=== PATIENT | female | born 1970 ===

== ENCOUNTER 2023-02-07 17:33 | Observation (INO) | payer SELFPAY ==
[2023-02-07] MEDS ORDERED: MORPHINE 4 MG/ML SYR ONE (17:58)
[2023-02-07] MEDS ORDERED: ONDANSETRON 4 MG/2 ML VIAL ONE (17:59)
[2023-02-07 18:15] LABS: Absolute Lymphocytes (CBC) 2.9 K/uL (0.7-4.9); Hematocrit 41.7 % (36.0-45.0); Lymphocytes % 23.8 % (15.3-44.8); MPV 9.9 fL (7.6-11.3); Potassium 3.3 mEq/L (3.5-5.1); RBC Red Blood Cell Count 4.69 M/uL (3.86-4.86); Troponin High Sensitivity 8.1 pg/mL (<58.9)
--- NOTE | 2023-02-07 19:00 | ER ---
Nurse's Notes [facility] Name: Lula Salazar Age: 52 yrs Sex: Female : 1970 Arrival Date: 02/07/2023 Time: 17:33 Bed 3 Private MD: Diagnosis: Chest pain, unspecified Presentation: 02/07 17:33 Chief complaint: Chief complaint: Patient states: left sided chest pain radiating to aa5 left arm that began 45mins ago, pt reports she takes Eliquis. Reports taking 2 baby aspirin and 2 Nitroglycerine MASS SPEC. 17:33 Onset of symptoms was February 07, 2023. aa5 17:33 Acuity: JEOVANNY 2 aa5 17:33 Coronavirus screen: At this time, the client does not indicate any symptoms associated aa5 with coronavirus-19. Ebola Screen: Patient denies travel to an Ebola-affected area in the 21 days before illness onset. Initial Sepsis Screen: Does the patient meet any 2 criteria? No. Patient's initial sepsis screen is negative. Does the patient have a suspected source of infection? No. Patient's initial sepsis screen is negative. Risk Assessment: Do you want to hurt yourself or someone else? Patient reports no desire to harm self or others. 17:33 Method Of Arrival: Ambulatory aa5 [employer] SPECIALIST: 19:08 LMP N/A - Hysterectomy jl7 Historical: - Allergies: 17:38 No Known Allergies; aa5 - PMHx: 17:38 Hypertensive disorder; Hypercholesterolemia; DVT; PE; aa5 - PSHx: 17:38 hysterectomy; L knee; right ankle; R foot; R calf; aa5 - Immunization history:: Adult Immunizations unknown. - Social history:: Smoking status: Patient denies any tobacco usage or history of. - Family history:: not pertinent. - Hospitalizations: : No recent hospitalization is reported. Screenin:06 [facility] ED Fall Risk Assessment (Adult) History of falling in the last 3 months, jl7 including since admission No falls in past 3 months (0 pts) Confusion or Disorientation No (0 pts) Intoxicated or Sedated No (0 pts) Impaired Gait No (0 pts) Mobility Assist Device Used No (0 pt) Altered Elimination No (0 pt) Score/Fall Risk Level 0 - 2 = Low Risk Oriented to surroundings, Maintained a safe environment. Abuse screen: Denies threats or abuse. Denies injuries from another. Nutritional screening: No deficits noted. Tuberculosis screening: No symptoms or risk factors identified. Assessment: 17:40 General: Appears uncomfortable, Behavior is Pt appears anxious, but is joking with ED ss staff, but voices her anxiety. Pain: Complains of pain in chest Pain radiates to back Pain currently is 6 out of 10 on a pain scale. Pain began 1 hour ago. Is intermittent. Neuro: Level of Consciousness is awake, alert, obeys commands, Oriented to person, place, time, situation, Speech is normal, Facial symmetry appears normal, Pupils are PERRLA. Cardiovascular: Pulses are palpable in right radial artery, right posterior tibial artery, left radial artery and left posterior tibial artery. Respiratory: Airway is patent Respiratory effort is even, unlabored, Respiratory pattern is regular, symmetrical. GI: Patient currently denies diarrhea, nausea, vomiting. : No signs and/or symptoms were reported regarding the genitourinary system. EENT: Oral mucosa is moist. Derm: Skin is intact, is healthy with good turgor, Skin is pink, warm \T\ dry. normal. Musculoskeletal: Circulation, motion, and sensation intact. Range of motion: intact in all extremities, Swelling absent. 20:41 Reassessment: Patient appears in no apparent distress at this time. Patient is alert, kl oriented x 3, equal unlabored respirations, skin warm/dry/pink. Patient states symptoms have improved. Vital Signs: 17:33 BP 180 / 92; Pulse 66; Resp 18 S; Temp 98(TE); Pulse Ox 97% on R/A; Weight 92.53 kg aa5 (R); Height 5 ft. 3 in. (R); 18:00 BP 146 / 79; Pulse 67; Resp 14; Pulse Ox 99% ; jl7 18:45 BP 140 / 70; Pulse 65; Resp 15; Pulse Ox 96% ; jl7 19:43 BP 130 / 79; Pulse 72; Resp 18; Pulse Ox 99% ; kl 20:39 BP 136 / 81; Pulse 78; Resp 18; Temp 97(TE); Pulse Ox 99% on R/A; Pain 6/10; kl 17:33 Body Mass Index 36.14 (92.53 kg, 160.02 cm) aa5 20:39 Pain Scale: Adult ED Course: 17:33 Arm band placed on Patient placed in an exam room, on a stretcher. aa5 17:33 Patient has correct armband on for positive identification. Placed in gown. Bed in low jl7 position. Call light in reach. Side rails up X2. Client placed on continuous cardiac and pulse oximetry monitoring. NIBP monitoring applied. 17:33 Patient maintains SpO2 saturation greater than 95% on room air. jl7 17:34 Patient arrived in ED. ts1 17:34 Malik Dior MD is Attending Physician. rn 17:39 Triage completed. aa5 17:41 Inserted saline lock: 20 gauge in right antecubital area, using aseptic technique. jl7 Blood collected. 17:47 EKG done, by ED staff, reviewed by Malik Dior MD. zm 17:50 Ashlee Browning RN is Primary Nurse. ss 18:13 XRAY Chest (1 view) In Process Unspecified. EDMS 18:54 CT Chest For PE Angio In Process Unspecified. EDMS 18:59 Kehinde Sandoval MD is Hospitalizing Provider. rn 19:17 Report given to GELACIO Patel. jl7 20:40 No provider procedures requiring assistance completed. Patient admitted, IV remains in kl place. Administered Medications: 17:55 Drug: Ondansetron IVP 4 mg Route: IVP; Site: right antecubital; ss 19:20 Follow up: Response: No adverse reaction jl7 18:00 Not Given (Order changed to 2 mgg): morphine IVP or IV 4 mg IVP once over 4 mins ss 18:01 Drug: morphine IVP or IV 2 mg Route: IVP; Infused Over: 4 mins; Site: right antecubital; 19:20 Follow up: Response: No adverse reaction jl7 19:11 Drug: Aspirin PO Chewable Tablet 162 mg Route: PO; jl7 19:20 Follow up: Response: No adverse reaction jl7 19:34 Drug: Nitroglycerin Sublingual 0.4 mg {Note: bp 140/70.} Route: Sublingual; 19:58 CANCELLED (Other Intervention Used): morphine IVP or IV 2 mg IVP once over 4 mins la1 20:10 Drug: HYDROmorphone IVP 1 mg Route: IVP; Site: right antecubital; ll3 20:41 Follow up: Response: Pain is decreased Medication: 17:40 VIS not applicable for this client. Outcome: 18:59 Decision to Hospitalize by Provider. gelacio 20:40 Admitted to Tele via wheelchair, room 407, with chart, Report called to chas barker 20:40 Condition: stable 20:44 Patient left the ED. mj Signatures: Dispatcher [employer] EDMS Charlene Urena RN RN aMlik Palm MD MD rn Calderon, Audri RN RN aa5 Ashlee Browning RN RN Peter Myers RN RN jl7 Ann Valenzuela RN RN ll3 Yamel Li Tanya, OLIVER PAS ts1 Abbe LuxP-Cla1 Corrections: (The following items were deleted from the chart) 17:42 17:33 Chief complaint: aa5 aa5
--- NOTE | 2023-02-07 19:00 | EDPHYS ---
Physician Documentation [facility] Name: Lula Salazar Age: 52 yrs Sex: Female : 1970 Arrival Date: 02/07/2023 Time: 17:33 Bed 3 Private MD: ED Physician Malik Dior HPI: 02/07 17:55 This 52 yrs old Female presents to ER via Ambulatory with complaints of Chest Pain > 30 rn y/o. 17:55 The patient or guardian reports chest pain that is located primarily in the substernal rn area. Onset: 45 minute(s) ago. The pain does not radiate. Associated signs and symptoms: Pertinent negatives: abdominal pain, cough, diaphoresis, shortness of breath, syncope, vomiting. The chest pain is described as a heaviness, a pressure. Modifying factors: The symptoms are alleviated by nothing. the symptoms are aggravated by nothing. Severity of pain: At its worst the pain was moderate in the emergency department the pain has improved. The patient has not experienced similar symptoms in the past. The patient has not recently seen a physician. Pt reports chest pain/pressure, started 45 min ago, while cooking, no sob, no radiation, improved after taking aspirin and nitroglycerin. States mother with AR around the same age. Has also had 3 DVT/PE in past and states compliant with eliquis. . 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 - Social history:: Smoking status: Patient denies any tobacco usage or history of. - Family history:: not pertinent. - Hospitalizations: : No recent hospitalization is reported. ROS: 17:55 Constitutional: Negative for fever, chills, and weight loss, Cardiovascular: Negative rn for palpitations, and edema, Respiratory: Negative for shortness of breath, cough, wheezing, and pleuritic chest pain, Abdomen/GI: Negative for abdominal pain, nausea, vomiting, diarrhea, and constipation, Back: Negative for injury and pain, MS/Extremity: Negative for injury and deformity, Skin: Negative for injury, rash, and discoloration, Neuro: Negative for headache, weakness, numbness, tingling, and seizure. Exam: 17:55 Constitutional: This is a well developed, well nourished patient who is awake, alert, rn seems anxious Head/Face: Normocephalic, atraumatic. Cardiovascular: Regular rate and rhythm. No pulse deficits. Respiratory: No increased work of breathing, no retractions or nasal flaring. Abdomen/GI: soft, non-tender Skin: Warm, dry MS/ Extremity: Pulses equal, no cyanosis. Neurovascular intact. Full, normal range of motion. Equal circumference. Neuro: Awake and alert, GCS 15 19:53 ECG was reviewed by the Attending Physician. rn Vital Signs: 17:33 BP 180 / 92; Pulse 66; Resp 18 S; Temp 98(TE); Pulse Ox 97% on R/A; Weight 92.53 kg aa5 (R); Height 5 ft. 3 in. (R); 18:00 BP 146 / 79; Pulse 67; Resp 14; Pulse Ox 99% ; jl7 18:45 BP 140 / 70; Pulse 65; Resp 15; Pulse Ox 96% ; jl7 19:43 BP 130 / 79; Pulse 72; Resp 18; Pulse Ox 99% ; kl 20:39 BP 136 / 81; Pulse 78; Resp 18; Temp 97(TE); Pulse Ox 99% on R/A; Pain 6/10; kl 17:33 Body Mass Index 36.14 (92.53 kg, 160.02 cm) aa5 20:39 Pain Scale: Adult kl MDM: 17:34 Patient medically screened. rn 18:52 Differential diagnosis: abnormal EKG, acute myocardial infarction, acute pericarditis, rn anxiety, coronary artery disease chest wall pain, costochondritis, pleurisy, pneumonia, pneumothorax, pulmonary embolus, stable angina, thoracic aortic disection. HEART Score: History: Moderately Suspicious (1), ECG: Non specific repolarization disturbance / LBTB / PM (1), Age: > 45 and < 65 years (1), Risk Factors: 1 or 2 risk factors (1), Troponin: < or = 1 x Normal Limit (0), Total Score = 4. The patient was given aspirin in the Emergency Department. Data reviewed: vital signs, nurses notes, lab test result(s), EKG, and as a result, I will admit patient. Consideration of Admission/Observation Patient was admitted/placed on observation. Escalation of care including admission/observation considered. Management of patient was discussed with the following: Hospitalist: . Counseling: I had a detailed discussion with the patient and/or guardian regarding: the historical points, exam findings, and any diagnostic results supporting the discharge/admit diagnosis, lab results, radiology results, the need for further work-up and treatment in the hospital. Response to treatment: the patient's symptoms have mildly improved after treatment, and as a result, I will admit patient. 02/07 17:35 Order name: Basic Metabolic Panel; Complete Time: 18:41 rn 02/07 17:35 Order name: CBC with Diff; Complete Time: 18:41 rn 02/07 17:35 Order name: NT PRO-BNP; Complete Time: 18:41 rn 02/07 17:35 Order name: Troponin HS; Complete Time: 18:41 rn 02/07 17:35 Order name: XRAY Chest (1 view); Complete Time: 19:05 rn 02/07 17:49 Order name: CT Chest For PE Angio; Complete Time: 19:05 rn 02/07 17:35 Order name: EKG; Complete Time: 17:36 rn 02/07 17:35 Order name: Cardiac monitoring; Complete Time: 17:47 rn 02/07 17:35 Order name: EKG - Nurse/Tech; Complete Time: 17:47 rn 02/07 17:35 Order name: IV Saline Lock; Complete Time: 17:50 rn 02/07 17:35 Order name: Labs collected and sent; Complete Time: 17:50 rn 02/07 17:35 Order name: O2 Per Protocol; Complete Time: 17:50 rn 02/07 17:35 Order name: O2 Sat Monitoring; Complete Time: 17:50 rn EC:53 Rate is 66 beats/min. Rhythm is regular. QRS [place] is Normal. LA interval is normal. QRS rn interval is normal. QT interval is normal. No Q waves. T waves are Normal. No ST changes noted. Clinical impression: Normal ECG. Interpreted by me. Reviewed by me. Administered Medications: 17:55 Drug: Ondansetron IVP 4 mg Route: IVP; Site: right antecubital; 19:20 Follow up: Response: No adverse reaction jl7 18:00 Not Given (Order changed to 2 mgg): morphine IVP or IV 4 mg IVP once over 4 mins ss 18:01 Drug: morphine IVP or IV 2 mg Route: IVP; Infused Over: 4 mins; Site: right antecubital;ss 19:20 Follow up: Response: No adverse reaction jl7 19:11 Drug: Aspirin PO Chewable Tablet 162 mg Route: PO; jl7 19:20 Follow up: Response: No adverse reaction 7 19:34 Drug: Nitroglycerin Sublingual 0.4 mg {Note: bp 140/70.} Route: Sublingual; 19:58 CANCELLED (Other Intervention Used): morphine IVP or IV 2 mg IVP once over 4 mins la1 20:10 Drug: HYDROmorphone IVP 1 mg Route: IVP; Site: right antecubital; ll3 20:41 Follow up: Response: Pain is decreased kl Disposition Summary: 02/07/23 18:59 Hospitalization Ordered Hospitalization Status: Observation rn Provider: eKhinde Sandoval rn Location: Telemetry/MedSurg (observation) rn Condition: Stable rn Problem: new rn Symptoms: have improved rn Bed/Room Type: Standard rn Room Assignment: 407(02/07/23 19:28) dw Diagnosis - Chest pain, unspecified rn Forms: - Medication Reconciliation Form rn - SBAR form rn Signatures: Dispatcher [employer] Charlene Colunga RN RN Talisha Tolliver RN RN Malik Lazo MD MD rn Calderon, Audri RN RN Ashlee Honeycutt RN RN Abbe Braswell FNP-C CAMPAIGN ADVISOR-Cla1 Peter Myers RN RN jl7 Ann Valenzuela, RN RN ll3 Corrections: (The following items were deleted from the chart) 19:28 18:59 rn dw 19:58 19:57 morphine IVP or IV 2 mg IVP once over 4 mins ordered. la1 la1
--- NOTE | 2023-02-07 19:03 | RAD REPORT ---
EXAM DESCRIPTION: CT - Chest For Pe Angio - 02/07/2023 6:52 pm CLINICAL HISTORY: Chest pain COMPARISON: None. TECHNIQUE: Dynamically enhanced axial 3 mm thick images of the chest were obtained during administra tion of 100 mL Isovue 370 IV contrast. Coronal and oblique reconstruction images were generated and r eviewed. Exam utilizes a protocol for optimal evaluation of pulmonary arterial tree. Maximum intensity projections 3D imaging was utilized All CT scans are performed using dose optimization technique as appropriate and may include automated exposure control or mA/KV adjustment according to patient size. FINDINGS: A pulmonary embolus is not seen. A thoracic aortic aneurysm is not noted. A pleural effusion is not seen. A pericardial effusion is not seen. A lung consolidation is not present. IMPRESSION: Negative for a pulmonary embolism.
--- NOTE | 2023-02-07 19:03 | RAD REPORT ---
EXAM DESCRIPTION: Sandrine Single View02/07/2023 6:11 pm CLINICAL HISTORY: Chest pain COMPARISON: none FINDINGS: The lungs appear clear of acute infiltrate. The heart appears borderline enlarged IMPRESSION: No acute abnormalities displayed
[2023-02-07] MEDS ORDERED: ASPIRIN 81 MG CHEWABLE TABLET ONE (19:06)
--- NOTE | 2023-02-07 19:32 | P.HP ---
Certification for Inpatient Patient admitted to: Observation With expected LOS: <2 Midnights Patient will require the following post-hospital care: None Practitioner: I am a practitioner with admitting privileges, knowledge of patient current condition, hospital course, and medical plan of care. Services: Services provided to patient in accordance with Admission requirements found in Title 42 Section 412.3 of the Code of Federal Regulations Patient History Date of Service: 02/07/23 History of Present Illness: 52-year-old female with history of PE/DVT on chronic anticoagulation, hypertension, hyperlipidemia, bipolar disorder/anxiety presents to the emergency department chief complaint of chest pain. She reports her pain began while cooking dinner this evening around 1700 she describes the pain as sharp/squeezing made worse with deep breath or exertion. She was evaluated in the emergency department EKG was without STEMI criteria initial high-sensitivity troponin 8.1 potassium 3.3 white blood cell count 12.0 CT chest PE protocol was performed which was negative for any acute findings chest x-ray also unremarkable. Patient with persistent pain, appears uncomfortable a strong family history of CAD, will admit under observation for ACS rule out Allergies morphine Allergy (Intermediate, Verified 02/14/13 20:25) Nausea/Vomiting - Past Medical/Surgical History -: PE/DVT on chronic anticoagulation -: Hypertension -: Hyperlipidemia -: BPD/anxiety -: Hysterectomy -: Multiple surgeries right lower extremity -: Left knee surgery Psychosocial/ Personal History: Patient disabled, lives at home with family - Family History Father -: Heart disease Mother -: Heart disease Brother -: Heart disease - Social History Smoking Status: Never smoker Alcohol use: No CD- Drugs: No Caffeine use: Yes Place of Residence: Home Review of Systems 10-point ROS is otherwise unremarkable Respiratory: Shortness of Breath Cardiovascular: Chest Pain Gastrointestinal: Nausea Physical Examination - Physical Exam General: Alert, In no apparent distress, Oriented x3, Obese HEENT: Atraumatic, PERRLA, Mucous membr. moist/pink, EOMI, Sclerae nonicteric Neck: Supple, 2+ carotid pulse no bruit, No LAD, Without JVD or thyroid abnormality Respiratory: Clear to auscultation bilaterally, Normal air movement Cardiovascular: Regular rate/rhythm, Normal S1 S2 Capillary refill: <2 Seconds Gastrointestinal: Normal bowel sounds, No tenderness Musculoskeletal: No tenderness Integumentary: No rashes Neurological: Normal speech, Normal strength at 5/5 x4 extr, Normal tone, Normal affect - Studies Laboratory Data (last 24 hrs) 02/07/23 17:45: WBC 12.00 H, Hgb 13.9, Hct 41.7, Plt Count 197 02/07/23 17:45: Sodium 139, Potassium 3.3 L, BUN 11, Creatinine 1.00, Glucose 134 H Assessment and Plan - Plan Assessment: Chest pain rule out ACS History of PE/DVT on chronic anticoagulation Hypertension Hyperlipidemia BPD/anxiety Plan: Chest pain rule out ACS Given aspirin, nitro, morphine in ED with mild relief, EKG without STEMI criteria first troponin negative. Trend troponins, monitor on telemetry, cardiology consult in place. Echocardiogram ordered. Continue aspirin, statin, beta-pita, Eliquis. If next troponin is elevated will switch to heparin drip. Strong family history, concerning story although pain is reproducible. History of PE/DVT on chronic anticoagulation Continue Eliquis, CT performed in ED negative for pulmonary embolism or other acute findings. Hypertension Hyperlipidemia BPD/anxiety Continue home medications. DVT PPX: Continue Eliquis Code status: Full code Discharge Plan: Home Plan to discharge in: 24 Hours - Advance Directives Does patient have a Living Will: No Does patient have a Durable POA for Healthcare: No - Code Status/Comfort Care Code Status Assessed: Yes (Full code) Critical Care: No Time Spent Managing Pts Care (In Minutes): 55
[2023-02-07] MEDS ORDERED: NITROGLYCERIN 0.4 MG/TAB SL ONE (19:37)
[2023-02-07] MEDS ORDERED: HYDROMORPHONE HCL 1 MG/ML INJ ONE (20:12)
[2023-02-07] MEDS ORDERED: NITROGLYCERIN 0.4 MG/TAB SL PRN (21:00)
[2023-02-07] MEDS ORDERED: ATORVASTATIN 40 MG TAB PO SCH (21:00)
[2023-02-07] MEDS ORDERED: ONDANSETRON 4 MG/2 ML VIAL IV PRN (21:00)
[2023-02-07] MEDS ORDERED: HYDROMORPHONE HCL 0.5 MG/0.5 ML INJ IV PRN (21:00)
[2023-02-07 22:09] VITALS: BMI 36.1
[2023-02-07] MEDS ORDERED: POTASSIUM CL SA 10 MEQ TAB PO ONE (22:20)
[2023-02-07] MEDS: BUSPIRONE HCL 5 MG TABLET PO SCH (22:22)
[2023-02-07] MEDS: METOPROLOL TAR 50 MG TAB PO SCH (22:22)
[2023-02-07] MEDS: ZIPRASIDONE 20 MG CAP PO SCH (22:22)
[2023-02-07] MEDS: ENOXAPARIN 100 MG/ML SYR SQ SCH (22:23)
[2023-02-08] MEDS: ACETAMINOPHEN 325 MG TABLET PO PRN ×2 (00:47→07:31)
[2023-02-08 04:56] VITALS: TEMP 97.1
[2023-02-08 06:07] VITALS: O2SAT 97
[2023-02-08 06:27] LABS: Absolute Lymphocytes (CBC) 2.9 K/uL (0.7-4.9); Hematocrit 41.2 % (36.0-45.0); Lymphocytes % 36.7 % (15.3-44.8); MPV 9.3 fL (7.6-11.3); RBC Red Blood Cell Count 4.58 M/uL (3.86-4.86)
[2023-02-08 06:59] LABS: Magnesium 2.2 mg/dL (1.6-2.4); Potassium 4.1 mEq/L (3.5-5.1); Thyroid Stimulating Hormone 3.54 uIU/mL (0.358-3.740); Troponin High Sensitivity 8.5 pg/mL (<58.9)
[2023-02-08] MEDS: ZIPRASIDONE 20 MG CAP PO SCH (08:37)
[2023-02-08] MEDS: BUSPIRONE HCL 5 MG TABLET PO SCH (08:37)
[2023-02-08] MEDS: METOPROLOL TAR 50 MG TAB PO SCH (08:37)
[2023-02-08] MEDS: ENOXAPARIN 100 MG/ML SYR SQ SCH (08:38)
[2023-02-08] MEDS ORDERED: APIXABAN 5 MG TABLET PO SCH (09:00)
[2023-02-08] MEDS ORDERED: ASPIRIN EC 81 MG TAB PO SCH (09:00)
[2023-02-08] MEDS ORDERED: PANTOPRAZOLE 40MG TABLET PO SCH (09:00)
--- NOTE | 2023-02-08 10:57 | P.DS ---
Admission Date: 02/07/23 Discharge Date: 02/08/23 Disposition: ROUTINE DISCHARGE Discharge Condition: GOOD Reason for Admission: Chest Pain Consultations: 1. Cardiology Hospital Course: DIAGNOSES: # Chest Pain - suspect noncardiac # History of PE/DVT on Apixaban # Hypertension # Hyperlipidemia # Bipolar Disorder # Anxiety HOSPITAL COURSE: Ms. Lula Salazar is a 52 year old female with a past medical history significant for history of DVT/PE on apixaban, hypertension, hyperlipidemia, bipolar disorder, and anxiety who was admitted to the [facility] on 02/07/2023 for chest pain. She was admitted to the Medicine service. Upon further evaluation, her EKG was without STEMI criteria. Her serial troponin was 8.1 -> 8.2 -> 8.5. Her chest x- ray revealed, "no acute abnormalities displayed." Her CT chest angiogram revealed, "negative for a pulmonary embolism." Cardiology was consulted and she was evaluated by Dr. Brennan. A transthoracic echocardiogram was obtained, and although the formal read is pending, Dr. Brennan has reviewed the images and stated that there were no concerning findings. From a cardiology standpoint, Dr. Brennan has cleared her for discharge with outpatient follow-up. On 02/08/2023, she was seen on morning rounds and deemed medically stable for discharge. She was discharged with instructions to schedule follow-up appointments with her PCP and with Cardiology (Dr. Brennan). She was given the opportunity to ask questions and reported no further questions. Furthermore, all questions were answered to the best of my ability. A copy of this discharge summary will be sent to the above providers to facilitate continuity of care. Today, I personally spent 25 minutes on her case, of which greater than 50% of the time was spent in patient education, counseling, and coordination of care as described above. Vital Signs/Physical Exam: Temp Pulse Resp BP Pulse Ox 97.1 F 51 16 148/86 H 96 02/08/23 11:50 02/08/23 11:50 02/08/23 11:50 02/08/23 11:50 02/08/23 11:50 General: Alert, In no apparent distress, Oriented x3 HEENT: Atraumatic, Mucous membr. moist/pink, Sclerae nonicteric Neck: JVD not distended Respiratory: Clear to auscultation bilaterally, Normal air movement Cardiovascular: No edema, Regular rate/rhythm, Normal S1 S2, No gallops, No rubs, No murmurs Gastrointestinal: Normal bowel sounds, Soft and benign, Non-distended, No tenderness, No rebound, No guarding Musculoskeletal: No clubbing Integumentary: No rashes Neurological: Normal speech, Normal affect Laboratory Data at Discharge: WBC 7.90 thou/uL (4.3-10.9) 02/08/23 05:56 Hgb 13.5 g/dL (12.0-15.0) 02/08/23 05:56 Hct 41.2 % (36.0-45.0) 02/08/23 05:56 Plt Count 163 thou/uL (152-406) 02/08/23 05:56 Sodium 140 mEq/L (136-145) 02/08/23 05:56 Potassium 4.1 mEq/L (3.5-5.1) D 02/08/23 05:56 BUN 9 mg/dL (7-18) 02/08/23 05:56 Creatinine 0.92 mg/dL (0.55-1.02) 02/08/23 05:56 Glucose 93 mg/dL (74-106) 02/08/23 05:56 Magnesium 2.2 mg/dL (1.6-2.4) 02/08/23 05:56 Triglycerides 98 mg/dL (<150) 02/08/23 05:56 Cholesterol 123 mg/dL (<200) 02/08/23 05:56 HDL Cholesterol 50 mg/dL (40-60) 02/08/23 05:56 Cholesterol/HDL Ratio 2.46 02/08/23 05:56 Home Medications: Apixaban [Eliquis] 5 mg PO BID 02/07/23 Ascorbic Acid [Vitamin C] 1,000 mg PO DAILY 02/07/23 Atorvastatin Calcium 10 mg PO BEDTIME 02/07/23 Buspirone HCl [Buspar] 10 mg PO TID 02/07/23 Metoprolol Tartrate [Lopressor] 100 mg PO BID 02/07/23 Pantoprazole [Protonix Tab*] 40 mg PO DAILY 02/07/23 Ziprasidone [Geodon*] 20 mg PO BID 02/07/23 Physician Discharge Instructions: 1. Please call and schedule a follow-up appointment with your PCP in 3-5 days 2. Please call and schedule a follow-up appointment with Cardiology (Dr. Brennan) in 5-7 days Diet: AHA Activity: Ad juan m Followup: Kristofer Brennan MD [ACTIVE - CAN ADMIT] - Time spent managing pt's care (in minutes): 25
[2023-02-08 11:51] VITALS: BP 148/86
--- NOTE | 2023-02-08 12:11 | CON ---
Date of Consultation: 02/08/2023 Reason For Consultation: Atypical chest pain. History Of Present Illness: Ms. Salazar is 52. Has really no previous cardiac history except for hyp ertension, dyslipidemia. 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 She also takes Lipitor. She takes metoprolol 100 b.i.d. and Protonix. She has k ept her metoprolol for about 2 weeks. Comes in still with bradycardia, was having significant chest pressure that is nonradiating, nonexertional, has been going on for few hours. No nausea, vomiting, diaphoresis, PND, orthopnea, pedal edema, palpitations, or syncope. Negative workup so far. EKG juliana wed bradycardia. Chest x-ray is negative. Troponin and BNP are negative. She is asymptomatic now. Past Medical History: As stated above. Allergies: SHE HAS NO ALLERGIES. Medications: Listed earlier. Review of Systems: Negative. Social History: Negative. Family History: Positive for heart disease in her mom and her dad and some other family members. Physical Examination: Vital Signs: Stable, afebrile. HEENT: Negative. Neck: Supple with no bruit. Chest: Clear. Cardiac: Revealed bradycardia with S4 gallops. Abdomen: Benign. Extremities: Revealed no clubbing, cyanosis, or edema. Diagnostic Data: Negative. Impression And Plan: Atypical chest pain, most likely withdrawal from beta-pita, concerned to be gastrointestinal and also be cardiac with her family history. Nevertheless, an echocardiogram is pen ding today. After that is done, I think she can go home. I will make arrangements for her to have a n outpatient MPI and see me in the near future. The case was discussed with Dr. Sandoval. SANTI/JAVIER Voice ID: [id number] Report ID: [id number]
--- NOTE | 2023-02-08 15:59 | EKG ---
Test Date: 2023-02-07 Test Time: 17:44:18 [employer] Salesperson: DONALDO MEASUREMENT RESULTS: Intervals: Rate: 66 WA: 146 QRSD: 80 QT: 424 QTc: 444 [place]: P: 35 WA: 146 QRS: -5 T: 1 INTERPRETIVE STATEMENTS: Normal sinus rhythm Normal ECG Compared to ECG 12/02/2013 11:02:00 Myocardial infarct finding no longer present Electronically Signed On 02-08-23 15:57:25 CDT by Kristofer Brennan
--- NOTE | 2023-02-09 07:30 | ECHO ---
HEIGHT: 5 ft 3 in WEIGHT: 204 lb 0 oz DATE OF STUDY: 02/08/[address]: Abbe Lux NP 2-DIMENSIONAL: YES M.MODE: YES DOPPLER: YES COLOR FLOW: YES TDS: NO PORTABLE: YES DEFINITY: NO BUBBLE STUDY: NO DIAGNOSIS: CHEST PAIN CARDIAC HISTORY: CATHERIZATION: SURGERY: PROSTHETIC VALVE: PACEMAKER: MEASUREMENTS (cm) DIASTOLIC (NORMALS) SYSTOLIC (NORMALS) IVSd 0.9 (0.6-1.2) LA Diam 3.7 (1.9-4.0) LVEF 66% LVIDd 4.6 (3.5-5.7) LVIDs 3.0 (2.0-3.5) %FS 36% LVPWd 1.0 (0.6-1.2) Ao Diam 2.9 (2.0-3.7) 2 DIMENSIONAL ASSESSMENT: RIGHT ATRIUM: NORMAL LEFT ATRIUM: NORMAL RIGHT VENTRICLE: NORMAL LEFT VENTRICLE: NORMAL TRICUSPID VALVE: NORMAL MITRAL VALVE: NORMAL PULMONIC VALVE: NORMAL AORTIC VALVE: NORMAL PERICARDIAL EFFUSION: NONE AORTIC ROOT: NORMAL LEFT VENTRICULAR WALL MOTION: NORMAL. DOPPLER/COLOR FLOW: TRACE OF MITRAL REGURGITATION. MILD TRICUSPID REGURGITATION COMMENTS: NORAML LEFT VENTRICULAR SIZE AND FUNCTION MILD TRICUSPID REGURGITATION TRACE OF MITRAL REGURGITATION TECHNOLOGIST: NNEKA GRANT
== END 2023-02-08 12:24 | disposition home or self-care (01) ==
LOC: ER 17:33 → 4TH 20:02
PROVIDERS: ADMIT Internal Medicine; ATTEND Internal Medicine
DX: R07.9 Chest pain, unspecified (principal); I10 Essential (primary) hypertension; E78.5 Hyperlipidemia, unspecified; F41.9 Anxiety disorder, unspecified; F31.9 Bipolar disorder, unspecified; Z88.6 Allergy status to analgesic agent; Z86.718 Personal history of other venous thrombosis and embolism; Z79.01 Long term (current) use of anticoagulants
CPT/HCPCS: 36415; 71045; 71275; 80048; 80061; 83735; 83880; 84439; 84443; 84484; 85025; 93005; 93306; 96374; 96375; 99285; G0378; J1170; J1650; J2405; Q9967

== ENCOUNTER 2023-05-15 15:57 | Emergency (ER) | payer SELFPAY ==
--- NOTE | 2023-05-15 18:21 | RAD REPORT ---
EXAM DESCRIPTION: CT - [id number] - 05/15/2023 6:02 pm CLINICAL HISTORY: Trauma, head and neck injury. TRAUMA COMPARISON: <Comparisons> TECHNIQUE: Axial 5 mm thick images of the head were obtained. Axial 2 mm thick images of the cervical spine were obtained with sagittal and coronal reconstruction images generated and reviewed. All CT scans are performed using dose optimization technique as appropriate and may include automated exposure control or mA/KV adjustment according to patient size. FINDINGS: CT HEAD WITHOUT CONTRAST: No acute hemorrhage, hydrocephalus or extra-axial collection is identified.No areas of brain edema or midline shift. The paranasal sinuses and mastoids are clear.The calvarium is intact. CT CERVICAL SPINE WITHOUT CONTRAST: No fracture or subluxation.No prevertebral soft tissues swelling is identified. IMPRESSION: No acute intracranial or cervical spine findings.
[2023-05-15] MEDS ORDERED: TDAP (DIPHTH,PERTUSS(ACELL),TET VAC) 0.5 ML VIAL IMVAC ONE (18:23)
[2023-05-15] MEDS ORDERED: MEPERIDINE HCL 25 MG/ML SYR ONE (18:26)
--- NOTE | 2023-05-15 18:35 | RAD REPORT ---
EXAM DESCRIPTION: RAD - Tib Fib Left - 05/15/2023 6:27 pm CLINICAL HISTORY: SMASH INJURY COMPARISON: <Comparisons> FINDINGS: Mild arthritic changes are present. No acute fractures seen. Small joint effusion. Large p lantar calcaneal spur.
--- NOTE | 2023-05-15 18:36 | RAD REPORT ---
EXAM DESCRIPTION: RAD - Foot Left 3 View - 05/15/2023 6:27 pm CLINICAL HISTORY: Pain;Smash injury COMPARISON: <Comparisons> FINDINGS: Soft tissue swelling is seen along the dorsum of the foot. Large plantar calcaneal spur. N o acute fracture or dislocation.
--- NOTE | 2023-05-15 18:43 | ER ---
Nurse's Notes [facility] Name: Lula Salazar Age: 53 yrs Sex: Female : 1970 Arrival Date: 05/15/2023 Time: 15:57 Bed 13 Private MD: Diagnosis: Fall (on) (from) other stairs and steps;Abrasion of lower leg;Pain in left knee;Pain in left foot Presentation: 05/15 16:34 Chief complaint: Patient states: [facility] about [facility] today, missed me1 all the stairs and landed on concrete on your left side. C/o pain from Left hip to left foot. Multiple abrasions and edema noted to LLE. Coronavirus screen: Vaccine status: Patient reports being unvaccinated. At this time, the client does not indicate any symptoms associated with coronavirus-19. Ebola Screen: No symptoms or risks identified at this time. Initial Sepsis Screen: Does the patient meet any 2 criteria? No. Patient's initial sepsis screen is negative. Does the patient have a suspected source of infection? No. Patient's initial sepsis screen is negative. Risk Assessment: Do you want to hurt yourself or someone else? Patient reports no desire to harm self or others. Onset of symptoms was May 15, 2023 at 11:00. 16:34 Method Of Arrival: Wheelchair me1 16:34 Acuity: JEOVANNY 3 me1 18:00 Care prior to arrival: None. Mechanism of Injury: Fall down steps. Trauma event db details: Injury occurred in the [facility]. 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 N/A - Hysterectomy me1 Trauma Activation: Not Applicable Physician: ED Physician; Name: ; Notified At: ; Arrived At: Physician: General Surgeon; Name: ; Notified At: ; Arrived At: Physician: Radiology; Name: ; Notified At: ; Arrived At: Physician: Respiratory; Name: ; Notified At: ; Arrived At: Physician: Lab; Name: ; Notified At: ; Arrived At: Historical: - Allergies: 16:39 Morphine; me1 - Home Meds: 16:39 metoprolol [Active]; amlodipine [Active]; atorvastatin [Active]; eliquis [Active]; me1 - PMHx: 16:39 DVT; Hypercholesterolemia; Hypertensive disorder; PE; me1 - PSHx: 16:39 hysterectomy; L knee; R calf; R foot; Right Ankle; me1 - Immunization history:: Adult Immunizations up to date. - Social history:: Smoking status: Patient denies any tobacco usage or history of. - Immunization history: Last tetanus immunization: unknown. Screenin:41 Abuse screen: Denies threats or abuse. Denies injuries from another. Tuberculosis db screening: No symptoms or risk factors identified. 19:42 [facility] ED Fall Risk Assessment (Adult) History of falling in the last 3 months, db including since admission Yes- single mechanical fall (1 pt) Confusion or Disorientation No (0 pts) Intoxicated or Sedated No (0 pts) Impaired Gait No (0 pts) Mobility Assist Device Used No (0 pt) Altered Elimination No (0 pt) Score/Fall Risk Level 0 - 2 = Low Risk Oriented to surroundings. Nutritional screening: No deficits noted. Primary Survey: 18:00 NO uncontrolled hemorrhage observed. A: The client is awake and alert. The airway is db patent. The client is alert. Airway: patent, No supplemental oxygen in use on arrival. Breathing/Chest: Spontaneous respiratory effort, equal unlabored respirations, breath sounds clear bilaterally, regular pattern, symmetrical chest rise and fall. Respiratory effort: spontaneous, unlabored, Breath sounds: clear. Circulation: No external hemorrhage present. Regular and strong central pulse, skin warm/dry/normal color. Disability Client is alert. Exposure/Environment: A warming method has been applied: A warm blanket has been provided to the patient. Reassessment Alertness and Airway: Awake and alert. The airway is patent. Breathing: Spontaneous respiratory effort, equal unlabored respirations, breath sounds clear bilaterally, regular pattern with symmetrical chest rise and fall. Circulation: No external hemorrhage noted. Regular and strong central pulse, skin warm/dry/normal color. Disability: Alert. Assessment: 18:00 General: Appears in no apparent distress. comfortable, Behavior is calm, cooperative. db 18:25 Reassessment: Patient appears in no apparent distress at this time. Patient and/or db family updated on plan of care and expected duration. Pain level reassessed. Patient is alert, oriented x 3, equal unlabored respirations, skin warm/dry/pink. Pain: Complains of pain in left leg. Neuro: Level of Consciousness is awake, alert, obeys commands, Oriented to person, place, time, situation. Vital Signs: 16:34 BP 135 / 79; Pulse 66; Resp 18; Temp 98.4(O); Pulse Ox 100% ; Weight 92.99 kg; Height 5 me1 ft. 3 in. ; Pain 8/10; 18:17 BP 147 / 85; Pulse 64; Resp 16; Pulse Ox 99% on R/A; db 18:30 BP 135 / 83; Pulse 63; Resp 16; Pulse Ox 100% on R/A; db 19:00 BP 123 / 78; Pulse 60; Resp 16; Pulse Ox 96% on R/A; db 16:34 Body Mass Index 36.31 (92.99 kg, 160.02 cm) me1 16:34 Pain Scale: Adult me1 [place] Coma Score: 19:30 Eye Response: spontaneous(4). Motor Response: obeys commands(6). Verbal Response: db oriented(5). Total: 15. Trauma Score (Adult): 19:30 Eye Response: spontaneous(1); Verbal Response: oriented(1); Motor Response: obeys db commands(2); Systolic BP: > 89 mm Hg(4); Respiratory Rate: 10 to 29 per min(4); Micki Score: 15; Trauma Score: 12 ED Course: 16:29 Patient arrived in ED. mg5 16:32 Xochitl Rebollar FNP-C [facility]. snw 16:32 Alfredo Schrader MD is Attending Physician. snw 16:39 Triage completed. me1 16:39 Arm band placed on Patient placed in waiting room. me1 18:00 Thermoregulation: warm blanket given to patient. db 18:03 CT Head C Spine In Process Unspecified. EDMS 18:05 Kristen Reynaga, RN is Primary Nurse. db 18:29 Tib Fib Left XRAY In Process Unspecified. EDMS 18:29 Foot Left 3 View XRAY In Process Unspecified. EDMS 18:34 Radiology exam delayed due to PT WAS TAKEN TO CT 545P. az 19:30 Crutch training done. Knee immobilizer applied on left knee. db 19:35 Provided Education on: DISCHARGE. db 19:41 Patient has correct armband on for positive identification. Bed in low position. Call db light in reach. Side rails up X2. 19:41 Patient maintains SpO2 saturation greater than 95% on room air. db 19:42 No provider procedures requiring assistance completed. Patient did not have IV access db during this emergency room visit. Administered Medications: 18:08 Drug: Boostrix Tdap IM 0.5 ml Route: IM; Site: right deltoid; db 19:14 Follow up: Response: No adverse reaction db 18:20 Drug: Meperidine IM 25 mg Route: IM; Site: left deltoid; db 19:14 Follow up: Response: No adverse reaction db 19:15 Drug: [place] PO 10 mg-325 mg 1 tabs Route: PO; db 19:43 Follow up: Response: No adverse reaction db Medication: 18:05 Vaccine Information Statement (VIS) provided today. Questions and/or concerns db addressed. VIS edition date: May 07, 2021. Intake: 19:30 PO: 0ml; Total: 0ml. db Outcome: 18:42 Discharge ordered by . snw 19:41 Discharged to home ambulatory, with family. db 19:41 Condition: stable 19:41 Patient's length of stay was not longer than 2 hours. 19:42 Discharge instructions given to patient, Instructed on discharge instructions, follow db up and referral plans. Prescriptions given X 1. 19:44 Patient left the ED. db Signatures: Dispatcher [employer] Xochitl Cummings FNP-C POWER REACTOR OPERATOR-Shameka Doan Danielle, RN RN db Dee Rodriguez RN RN me1 Melodie Baig mg5
--- NOTE | 2023-05-15 18:43 | EDPHYS ---
Physician Documentation [facility] Name: Lula Salazar Age: 53 yrs Sex: Female : 1970 Arrival Date: 05/15/2023 Time: 15:57 Bed 13 Private MD: PILI Physician Alfredo Schrader HPI: 05/15 17:46 This 53 yrs old Unknown Female presents to ER via Wheelchair with complaints of Fall snw Injury, Leg Swelling. 17:46 Details of fall: The patient fell from a height, missed steps out of [facility]. Onset: The snw symptoms/episode began/occurred suddenly. Associated injuries: The patient sustained left leg and dorsum of left foot and left knee, decreased range of motion. Severity of symptoms: At their worst the symptoms were moderate, severe. The patient has not experienced similar symptoms in the past. It is unknown whether or not the patient has recently seen a physician. 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 - Social history:: Smoking status: Patient denies any tobacco usage or history of. - Immunization history: Last tetanus immunization: unknown. ROS: 17:28 Constitutional: Negative for fever, chills, and weight loss, Eyes: Negative for injury, snw pain, redness, and discharge, ENT: Negative for injury, pain, and discharge, Neck: Negative for injury, pain, and swelling, Cardiovascular: Negative for chest pain, palpitations, and edema, Respiratory: Negative for shortness of breath, cough, wheezing, and pleuritic chest pain, Abdomen/GI: Negative for abdominal pain, nausea, vomiting, diarrhea, and constipation, Back: Negative for injury and pain, : Negative for injury, bleeding, discharge, and swelling, Skin: Negative for injury, rash, and discoloration, Neuro: Negative for headache, weakness, numbness, tingling, and seizure. 17:28 MS/extremity: Positive for injury or acute deformity, contusion, decreased range of motion, pain, of the left knee and dorsum of left foot. Exam: 17:25 Constitutional: This is a well developed, well nourished patient who is awake, alert, snw and in no acute distress. Head/Face: Normocephalic, atraumatic. Eyes: Pupils equal round and reactive to light, extra-ocular motions intact. Lids and lashes normal. Conjunctiva and sclera are non-icteric and not injected. Cornea within normal limits. Periorbital areas with no swelling, redness, or edema. ENT: Nares patent. No nasal discharge, no septal abnormalities noted. Tympanic membranes are normal and external auditory canals are clear. Oropharynx with no redness, swelling, or masses, exudates, or evidence of obstruction, uvula midline. Mucous membranes moist. Neck: Trachea midline, no thyromegaly or masses palpated, and no cervical lymphadenopathy. Supple, full range of motion without nuchal rigidity, or vertebral point tenderness. No Meningismus. Chest/axilla: Normal chest wall appearance and motion. Nontender with no deformity. No lesions are appreciated. Cardiovascular: Regular rate and rhythm with a normal S1 and S2. No gallops, murmurs, or rubs. Normal PMI, no JVD. No pulse deficits. Respiratory: Lungs have equal breath sounds bilaterally, clear to auscultation and percussion. No rales, rhonchi or wheezes noted. No increased work of breathing, no retractions or nasal flaring. Abdomen/GI: Soft, non-tender, with normal bowel sounds. No distension or tympany. No guarding or rebound. No evidence of tenderness throughout. Back: No spinal tenderness. No costovertebral tenderness. Full range of motion. Skin: Warm, dry with normal turgor. Normal color with no rashes, no lesions, and no evidence of cellulitis. MS/ Extremity: Pulses equal, no cyanosis. Neurovascular intact. Full, normal range of motion. Neuro: Awake and alert, GCS 15, oriented to person, place, time, and situation. Cranial nerves II-XII grossly intact. Motor strength 5/5 in all extremities. Sensory grossly intact. Cerebellar exam normal. Normal gait. Psych: Awake, alert, with orientation to person, place and time. Behavior, mood, and affect are within normal limits. Vital Signs: 16:34 BP 135 / 79; Pulse 66; Resp 18; Temp 98.4(O); Pulse Ox 100% ; Weight 92.99 kg; Height 5 me1 ft. 3 in. ; Pain 8/10; 18:17 BP 147 / 85; Pulse 64; Resp 16; Pulse Ox 99% on R/A; db 18:30 BP 135 / 83; Pulse 63; Resp 16; Pulse Ox 100% on R/A; db 19:00 BP 123 / 78; Pulse 60; Resp 16; Pulse Ox 96% on R/A; db 16:34 Body Mass Index 36.31 (92.99 kg, 160.02 cm) me1 16:34 Pain Scale: Adult me1 [place] Coma Score: 19:30 Eye Response: spontaneous(4). Motor Response: obeys commands(6). Verbal Response: db oriented(5). Total: 15. Trauma Score (Adult): 19:30 Eye Response: spontaneous(1); Verbal Response: oriented(1); Motor Response: obeys db commands(2); Systolic BP: > 89 mm Hg(4); Respiratory Rate: 10 to 29 per min(4); Micki Score: 15; Trauma Score: 12 MDM: 16:46 Patient medically screened. snw 18:59 Differential diagnosis: abrasion, contusion, fracture, sprain, strain. Data reviewed: snw vital signs, nurses notes, radiologic studies. I considered the following discharge prescriptions or medication management in the emergency department Medications were administered in the Emergency Department. See MAR. Counseling: I had a detailed discussion with the patient and/or guardian regarding: the historical points, exam findings, and any diagnostic results supporting the discharge/admit diagnosis, radiology results, the need for outpatient follow up, for definitive care, to return to the emergency department if symptoms worsen or persist or if there are any questions or concerns that arise at home. Special discussion: Based on the history and exam findings, there is no indication for further emergent testing or inpatient evaluation. I discussed with the patient/guardian the need to see the primary care provider for further evaluation of the symptoms. 05/15 16:52 Order name: Tib Fib Left XRAY; Complete Time: 18:41 snw 08/14 16:52 Order name: Foot Left 3 View XRAY; Complete Time: 18:41 snw 05/15 16:52 Order name: CT Head C Spine; Complete Time: 18:22 snw 05/15 18:41 Order name: Knee Immobilizer; Complete Time: 19:38 snw 05/15 19:18 Order name: Crutches; Complete Time: 19:38 lg3 Administered Medications: 18:08 Drug: Boostrix Tdap IM 0.5 ml Route: IM; Site: right deltoid; db 19:14 Follow up: Response: No adverse reaction db 18:20 Drug: Meperidine IM 25 mg Route: IM; Site: left deltoid; db 19:14 Follow up: Response: No adverse reaction db 19:15 Drug: [place] PO 10 mg-325 mg 1 tabs Route: PO; db 19:43 Follow up: Response: No adverse reaction db Disposition Summary: 05/15/23 18:42 Discharge Ordered Location: Home snw Condition: Stable snw Diagnosis - Fall (on) (from) other stairs and steps snw - Abrasion of lower leg snw - Pain in left knee snw - Pain in left foot snw Followup: snw - With: Emergency Department - When: As needed - Reason: Worsening of condition Followup: snw - With: Private Physician - When: 2 - 3 days - Reason: Recheck today's complaints, Continuance of care, Re-evaluation by your physician Discharge Instructions: - Discharge Summary Sheet snw - Joint Pain snw - Arthritis snw - How to Use a Knee Brace snw - Musculoskeletal Pain snw - How to Use Cold Therapy, [id number] snw - Foot Pain snw Forms: - Work release form snw - Medication Reconciliation Form snw - Thank You Letter snw - Antibiotic Education snw - Prescription Opioid Use snw - Patient Portal Instructions snw - Leadership Thank You Letter snw Prescriptions: - Diclofenac Sodium 75 mg Oral Tablet Sustained Release - take 1 tablet by ORAL route 2 times per day; 30 tablet; Refills: 0, Product snw Selection Permitted Signatures: Dispatcher [employer] Xochitl Cummings FNP-C CLIENT SUPPORT ANALYST-Csnw Marge Mccord RN RN lg3 Kristen Reynaga, RN RN db Dee Rodriguez RN RN me1
[2023-05-15] MEDS ORDERED: HYDROCODONE/APAP 10/325 TAB ONE (19:33)
[2023-05-15 19:49] VITALS: TEMP 98.4
[2023-05-15 19:54] VITALS: BP 123/78; O2SAT 96
== END 2023-05-15 19:44 | disposition home or self-care (01) ==
LOC: ER 15:57
DX: S80.812A Abrasion, left lower leg, initial encounter (principal); M25.562 Pain in left knee; M79.672 Pain in left foot; W10.8XXA Fall (on) (from) other stairs and steps, initial encounter
CPT/HCPCS: 70450; 72125; 96372; 99285; J2175

== ENCOUNTER 2023-06-15 22:53 | Observation (INO) | payer SELFPAY ==
[2023-06-16] MEDS ORDERED: ASPIRIN 81 MG CHEWABLE TABLET ONE (00:09)
[2023-06-16] MEDS ORDERED: ALBUTEROL 2.5 MG/3 ML NEB SOL ONE (00:09)
[2023-06-16] MEDS ORDERED: IPRATROPIUM BROM 0.5MG/2.5ML ONE (00:10)
[2023-06-16 00:28] LABS: Absolute Lymphocytes (CBC) 3.2 K/uL (0.7-4.9); Lymphocytes % 32.7 % (15.3-44.8); MCV 86.6 fL (80-100); MPV 8.8 fL (7.6-11.3); Platelets 215 thou/uL (152-406)
[2023-06-16 00:34] LABS: Protime INR 1.19
[2023-06-16 00:49] LABS: ALT/SGPT 18 U/L (13-56); AST/SGOT 14 U/L (15-37); Albumin 3.6 g/dL (3.4-5.0); Alkaline Phosphatase 163 U/L (45-117); BUN Blood Urea Nitrogen 14 mg/dL (7-18); Bicarbonate 33 mEq/L (21-32); Bilirubin Total 0.3 mg/dL (0.2-1.0); Glomerular Filtration Rate 50 ml/min (=/>90); Glucose Level 113 mg/dL (74-106); Magnesium 1.8 mg/dL (1.6-2.4); NT PRO-BNP 39 pg/mL (<125); Potassium 2.7 mEq/L (3.5-5.1); Sodium Level 140 mEq/L (136-145); Troponin High Sensitivity 9.9 pg/mL (<58.9)
[2023-06-16 00:50] LABS: Bilirubin Direct < 0.1 mg/dL (0-0.2); Bilirubin Indirect, Calculated ND mg/dL (0.2-0.8)
[2023-06-16] MEDS ORDERED: KETOROLAC 30 MG/ML INJ ONE (00:54)
[2023-06-16] MEDS ORDERED: LORazepam 2 MG/ML VIAL ONE (00:54)
[2023-06-16] MEDS ORDERED: METHYLPREDNISOLONE 40 MG INJ ONE (01:38)
[2023-06-16] MEDS ORDERED: POTASSIUM 25 MEQ EFFERV TAB ONE (01:38)
[2023-06-16] MEDS ORDERED: KCL 20 MEQ/100 mL IVPB 100 ML IV ONE (01:39)
[2023-06-16] MEDS ORDERED: NA CHLORIDE 0.9% 250 ML ONE (02:00)
[2023-06-16] MEDS ORDERED: LEVALBUTEROL 1.25 MG/3 ML NEB ONE (03:17)
--- NOTE | 2023-06-16 03:40 | ER ---
Nurse's Notes [facility] Name: Lula Salazar Age: 53 yrs Sex: Female : 1970 Arrival Date: 06/15/2023 Time: 22:53 Bed 13 Private MD: Diagnosis: Chest pain, unspecified;Dyspnea, unspecified Presentation: 06/15 23:25 Chief complaint: Patient states: SOB,onset yesterday with bilateral hand and feet pf1 swelling,onset 2 weeks. Patient stated takes HCTZ, does not feel like it is working. Patient denies any chest pain. Coronavirus screen: Vaccine status: Patient reports being unvaccinated. Client denies travel out of the [place] in the last 14 days. Client presents with at least one sign or symptom that may indicate coronavirus-19. Ebola Screen: Patient negative for fever greater than or equal to 101.5 degrees Fahrenheit, and additional compatible Ebola Virus Disease symptoms. Initial Sepsis Screen: Does the patient meet any 2 criteria? No. Patient's initial sepsis screen is negative. Does the patient have a suspected source of infection? No. Patient's initial sepsis screen is negative. Risk Assessment: Do you want to hurt yourself or someone else? Patient reports no desire to harm self or others. 23:25 Method Of Arrival: Ambulatory pf1 23:25 Acuity: JEOVANNY 3 pf1 06/16 01:04 Onset of symptoms was June 15, 2023 at 12:00. jw7 [employer]: 00:00 LMP N/A - Hysterectomy jw7 Historical: - Allergies: 06/15 23:27 Morphine; pf1 - Home Meds: 06/16 00:00 Amlodipine [Active]; atorvastatin [Active]; eliquis [Active]; metoprolol [Active]; jw7 Hydrochlorothiazide Oral [Active]; BuSpar Oral [Active]; Risperdal Oral [Active]; - PMHx: 06/15 23:27 DVT; PE; Hypertensive disorder; Hypercholesterolemia; pf1 - PSHx: 23:27 hysterectomy; L knee; R calf; R foot; Right Ankle; pf1 - Immunization history:: Adult Immunizations up to date, Client reports having NOT received the Covid vaccine. Last tetanus immunization: < 5 years ago Flu vaccine is not up to date. - Social history:: Smoking status: Patient denies any tobacco usage or history of. Patient/guardian denies using alcohol, street drugs. Screenin/15 01:03 [facility] ED Fall Risk Assessment (Adult) History of falling in the last 3 months, jw7 including since admission No falls in past 3 months (0 pts) Score/Fall Risk Level 0 - 2 = Low Risk. Abuse screen: Denies threats or abuse. Denies injuries from another. Nutritional screening: No deficits noted. Tuberculosis screening: No symptoms or risk factors identified. Assessment: 00:00 General: Appears in no apparent distress. uncomfortable, Behavior is calm, cooperative. jw7 Pain: Denies pain. Neuro: No deficits noted. Dawn Agitation-Sedation Scale (RASS): 0 - Alert and Calm. Cardiovascular: Reports lightheadedness, shortness of breath, Capillary refill < 3 seconds Clubbing of nail beds is absent JVD is absent Patient's skin is warm and dry. Respiratory: Reports shortness of breath at rest on exertion Airway is patent Trachea midline Respiratory effort is even, unlabored, Respiratory pattern is regular, symmetrical, Onset: The symptoms/episode began/occurred yesterday. GI: No deficits noted. No signs and/or symptoms were reported involving the gastrointestinal system. : No deficits noted. No signs and/or symptoms were reported regarding the genitourinary system. EENT: No deficits noted. No signs and/or symptoms were reported regarding the EENT system. Derm: No deficits noted. No signs and/or symptoms reported regarding the dermatologic system. Musculoskeletal: Reports swelling to bilateral upper and lower extremities, and tingling in the hands that is intermittent. 01:00 Reassessment: Patient appears in no apparent distress at this time. No changes from jw7 previously documented assessment. Patient and/or family updated on plan of care and expected duration. Pain level reassessed. Patient is alert, oriented x 3, equal unlabored respirations, skin warm/dry/pink. 02:00 Reassessment: Patient appears in no apparent distress at this time. No changes from jw7 previously documented assessment. Patient and/or family updated on plan of care and expected duration. Pain level reassessed. Patient is alert, oriented x 3, equal unlabored respirations, skin warm/dry/pink. 03:00 Reassessment: Patient appears in no apparent distress at this time. Patient and/or jw7 family updated on plan of care and expected duration. Pain level reassessed. Patient is alert, oriented x 3, equal unlabored respirations, skin warm/dry/pink. Patient states feeling better. 04:15 Reassessment: Patient appears in no apparent distress at this time. No changes from jw7 previously documented assessment. Patient and/or family updated on plan of care and expected duration. Pain level reassessed. Patient is alert, oriented x 3, equal unlabored respirations, skin warm/dry/pink. Vital Signs: 06/15 23:25 BP 134 / 90; Pulse 71; Resp 18; Temp 97.9; Pulse Ox 99% ; Weight 95.84 kg; Height 5 ft. pf1 3 in. ; Pain 0/10; 06/16 00:00 BP 129 / 88; Pulse 69; Resp 16; Pulse Ox 100% on 2 lpm NC; jw7 00:30 BP 117 / 77; Pulse 61; Resp 12 S; Pulse Ox 100% on R/A; jw7 01:30 BP 123 / 79; Pulse 71; Resp 17 S; Pulse Ox 100% on R/A; jw7 02:30 BP 118 / 69; Pulse 68; Resp 19 S; Pulse Ox 97% on 2 lpm NC; jw7 03:30 BP 118 / 90; Pulse 69; Resp 18 S; Pulse Ox 99% on 3 lpm Nebulizer Mask; jw7 03:53 Resp 17; Pulse Ox 97% on R/A; jw7 06/15 23:25 Body Mass Index 37.43 (95.84 kg, 160.02 cm) pf1 06/15 23:25 Pain Scale: Adult pf1 ED Course: 06/15 22:59 Patient arrived in ED. kj1 23:27 Alfredo Marc PA is PHCP. cp 23:27 Malik Dior MD is Attending Physician. cp 23:27 Triage completed. pf1 23:39 Cathleen Livingston, GELACIO is Primary Nurse. jw7 06/16 00:33 Initial lab(s) drawn, by nj, sent to lab. EKG done, by ED staff, reviewed by Alfredo SHELDON Strep swab sent to lab. Inserted saline lock: 22 gauge in right antecubital area, using aseptic technique. Blood collected. 00:34 Basic Metabolic Panel Sent. jw7 00:36 Strep Sent. jw7 00:59 US Extremity Venous W Compression Ihsan In Process Unspecified. EDMS 01:03 Patient has correct armband on for positive identification. Bed in low position. Call jw7 light in reach. Side rails up X 1. 01:05 Arm band placed on. jw7 01:12 XRAY Chest (1 view) In Process Unspecified. EDMS 01:25 CT Chest For PE Angio In Process Unspecified. EDMS 03:39 Agustín Dior MD is Hospitalizing Provider. rn 04:10 Provided Education on: need for admit. jw7 06:25 No provider procedures requiring assistance completed. Patient admitted, IV remains in jw7 place. Administered Medications: 00:33 Drug: Ipratropium Inhalation Aerosol 0.5 mg Inhalation once Route: Inhalation; jw7 02:03 Follow up: Response: No adverse reaction jw7 00:33 Drug: Albuterol Inhalation 2.5 mg Inhalation once Route: Inhalation; jw7 02:03 Follow up: Response: No adverse reaction jw7 00:34 Drug: Aspirin PO Chewable Tablet 324 mg PO once; 81 mg tablets x 4 Route: PO; jw7 02:03 Follow up: Response: No adverse reaction jw7 00:49 Drug: Ketorolac IVP 15 mg IVP once Route: IVP; Site: right antecubital; jw7 02:03 Follow up: Response: No adverse reaction jw7 00:49 Drug: Ativan IVP 0.5 mg IVP once Route: IVP; Site: right antecubital; jw7 02:03 Follow up: Response: No adverse reaction jw7 02:02 Drug: Potassium Chloride IV 20 mEq IV at calculated rate once; administer over 1-2 jw7 hours Route: IV; Rate: calculated rate; Site: right antecubital; 05:04 Follow up: Response: No adverse reaction; IV Status: Completed infusion; IV Intake: jw7 100ml 02:03 Drug: Potassium PO Effervescent Tablet 50 mEq PO once; dissolve in 4 ounces of water or jw7 juice Route: PO; 03:54 Follow up: Response: No adverse reaction jw7 02:03 Drug: MethylPrednisoLONE IVP 80 mg IVP once Route: IVP; Site: right antecubital; jw7 03:54 Follow up: Response: No adverse reaction jw7 03:15 Drug: Levalbuterol Inhalation 1.25 mg Inhalation once Route: Inhalation; jw7 05:04 Follow up: Response: No adverse reaction jw7 Medication: 06:25 VIS not applicable for this client. jw7 Intake: 05:04 IV: 100ml; Total: 100ml. jw7 Outcome: 03:39 Decision to Hospitalize by Provider. rn 06:25 Admitted to ER Hold. Please see [facility] for further documentation. jw7 06:25 Condition: stable 06:25 Instructed on the need for admit, 12:30 Patient left the ED. ap3 Signatures: Dispatcher [employer] EDMS Malik Dior MD MD rn Alfredo Marc PA PA cp Prokisch, Amanda, RN RN ap3 Dilia Carreno1 Cathleen Livingston RN RN jw7 Sugar Bradley RN RN pf1 Corrections: (The following items were deleted from the chart) 01:06 01:04 General: Appears in no apparent distress. uncomfortable, Behavior is calm, jw7 cooperative, jw7 01:06 01:04 Pain: Denies pain. jw7 jw7 :32 01:07 General: Appears in no apparent distress. uncomfortable, Behavior is calm, jw7 cooperative, jw7 :32 01:07 Pain: Denies pain. jw7 jw7 :32 01:07 Neuro: No deficits noted. Dawn Agitation-Sedation Scale (RASS): 0 - Alert and jw7 Calm jw7 32 01:07 Cardiovascular: Reports lightheadedness, shortness of breath, Capillary refill < jw7 3 seconds Clubbing of nail beds is absent JVD is absent Patient's skin is warm and dry. jw7 01:07 Respiratory: Reports shortness of breath at rest on exertion Airway is patent jw7 Trachea midline Respiratory effort is even, unlabored, Respiratory pattern is regular, symmetrical, Onset: The symptoms/episode began/occurred yesterday, jw7 01:07 GI: No deficits noted. No signs and/or symptoms were reported involving the jw7 gastrointestinal system. jw7 01:07 : No deficits noted. No signs and/or symptoms were reported regarding the jw7 genitourinary system. jw7 01:07 EENT: No deficits noted. No signs and/or symptoms were reported regarding the jw7 EENT system. jw7 :32 01:07 Derm: No deficits noted. No signs and/or symptoms reported regarding the jw7 dermatologic system. jw7 :32 01:07 Musculoskeletal: No deficits noted. No signs and/or symptoms reported regarding jw7 the musculoskeletal system. jw7 03:34 00:00 Cardiovascular: Reports lightheadedness, shortness of breath, Capillary refill < jw7 3 seconds Clubbing of nail beds is absent JVD is absent Patient's skin is warm and dry. jw7 :34 00:00 Musculoskeletal: No deficits noted. No signs and/or symptoms reported regarding jw7 the musculoskeletal system. jw7 03:35 00:00 Musculoskeletal: Swelling present in right hand, left hand, right foot and left jw7 foot jw7 03:53 03:30 BP 118 / 90; Pulse 69bpm; Resp 18bpm; Spontaneous; Pulse Ox 99% 02 5lpm Nebulizer jw7 Mask; jw7
--- NOTE | 2023-06-16 03:40 | EDPHYS ---
Physician Documentation [facility] Name: Lula Salazar Age: 53 yrs Sex: Female : 1970 Arrival Date: 06/15/2023 Time: 22:53 Bed 13 Private MD: ED Physician Malik Dior HPI: 06/15 23:50 This 53 yrs old Unknown Female presents to ER via Ambulatory with complaints of cp Shortness Of Breath. 23:50 The patient has shortness of breath at rest. Onset: The symptoms/episode began/occurred cp 2 week(s) ago, and became worse yesterday. 23:50 Duration: The symptoms are continuous, and are steadily getting worse. cp 23:50 Associated signs and symptoms: Pertinent positives: swelling of hands and feet, cp Pertinent negatives: productive cough, diaphoresis, dizziness, fever, vomiting. Severity of symptoms: in the emergency department the symptoms are unchanged despite home interventions. [employer] AUTHOR: 06/16 00:00 LMP N/A - Hysterectomy jw7 Historical: - Allergies: 06/15 23:27 Morphine; pf1 - Home Meds: 06/16 00:00 Amlodipine [Active]; atorvastatin [Active]; eliquis [Active]; metoprolol [Active]; jw7 Hydrochlorothiazide Oral [Active]; BuSpar Oral [Active]; Risperdal Oral [Active]; - PMHx: 06/15 23:27 DVT; PE; Hypertensive disorder; Hypercholesterolemia; pf1 - PSHx: 23:27 hysterectomy; L knee; R calf; R foot; Right Ankle; pf1 - Immunization history:: Adult Immunizations up to date, Client reports having NOT received the Covid vaccine. Last tetanus immunization: < 5 years ago Flu vaccine is not up to date. - Social history:: Smoking status: Patient denies any tobacco usage or history of. Patient/guardian denies using alcohol, street drugs. ROS: 23:55 Constitutional: Negative for body aches, chills, fever, poor PO intake, cp 23:55 ENT: Negative for drainage from ear(s), ear pain, sore throat, difficulty swallowing, cp difficulty handling secretions, 23:55 Respiratory: Positive for shortness of breath, at rest. Negative for cough, wheezing, 23:55 Abdomen/GI: Negative for abdominal pain, vomiting, diarrhea, constipation, 23:55 Neuro: Negative for altered mental status, headache, weakness, cp Exam: 23:59 Constitutional: The patient appears in no acute distress, alert, awake, cp non-diaphoretic, non-toxic, well developed, well nourished, anxious, overweight 23:59 Head/Face: Normocephalic, atraumatic. cp 23:59 Eyes: Periorbital structures: appear normal, Conjunctiva: normal, no exudate, no cp injection, Sclera: no appreciated abnormality, Lids and lashes: appear normal, bilaterally, 23:59 ENT: External ear(s): are unremarkable, Nose: is normal, Mouth: Lips: moist, Oral cp mucosa: pink and intact, moist, Posterior pharynx: is normal, airway is patent, no erythema, no exudate, 23:59 Chest/axilla: Inspection: normal, 23:59 Cardiovascular: Rate: normal, Rhythm: regular, Edema: pedal edema, that is mild, ankle edema, that is mild, JVD: is not appreciated, 23:59 Respiratory: the patient does not display signs of respiratory distress, Respirations: normal, no use of accessory muscles, no retractions, labored breathing, is not present, Breath sounds: are clear throughout, no decreased breath sounds, no stridor, no wheezing, 23:59 Abdomen/GI: Inspection: abdomen appears normal, Palpation: soft, in all quadrants, nontender, in all quadrants, 23:59 Back: CVA tenderness, is absent, 23:59 Neuro: Orientation: to person, place \T\ time. Mentation: is normal, Motor: moves all fours, strength is normal, Sensation: no obvious gross deficits, 06/16 00:35 ECG was reviewed by the Attending Physician. cp Vital Signs: 06/15 23:25 BP 134 / 90; Pulse 71; Resp 18; Temp 97.9; Pulse Ox 99% ; Weight 95.84 kg; Height 5 ft. pf1 3 in. ; Pain 0/10; 06/16 00:00 BP 129 / 88; Pulse 69; Resp 16; Pulse Ox 100% on 2 lpm NC; jw7 00:30 BP 117 / 77; Pulse 61; Resp 12 S; Pulse Ox 100% on R/A; jw7 01:30 BP 123 / 79; Pulse 71; Resp 17 S; Pulse Ox 100% on R/A; jw7 02:30 BP 118 / 69; Pulse 68; Resp 19 S; Pulse Ox 97% on 2 lpm NC; jw7 03:30 BP 118 / 90; Pulse 69; Resp 18 S; Pulse Ox 99% on 3 lpm Nebulizer Mask; jw7 03:53 Resp 17; Pulse Ox 97% on R/A; jw7 06/15 23:25 Body Mass Index 37.43 (95.84 kg, 160.02 cm) pf1 06/15 23:25 Pain Scale: Adult pf1 MDM: 06/15 23:35 Patient medically screened. 06/16 03:36 Differential diagnosis: Anxiety Reaction CHF exacerbation, Chronic Obstructive rn Pulmonary Disease Myocardial Infarction pneumonia, Pneumothorax pulmonary edema, Pulmonary Embolism. Data reviewed: vital signs, nurses notes, lab test result(s), EKG, radiologic studies, and as a result, I will admit patient. Consideration of Admission/Observation Patient was admitted/placed on observation. Escalation of care including admission/observation considered. Counseling: I had a detailed discussion with the patient and/or guardian regarding the historical points, exam findings, and any diagnostic results supporting the discharge/admit diagnosis, lab results, radiology results, the need for further work-up and treatment in the hospital. Response to treatment: There is no appreciated change of the patient's symptoms at this time, and as a result, I will admit patient. ED course: Patient still reports heaviness in the chest, worsening over the last 2 weeks, strong family history of cardiac disease and brother with multiple stents at the same age. CT PE negative, troponin negative. Will admit for cardiac work-up as has concerning story, just moved here, no follow-up.. 06/15 23:46 Order name: Basic Metabolic Panel; Complete Time: 01:08 06/16 01:09 Interpretation: Normal except: K 2.7; CO2 33; GLUC 113; CRE 1.29; GFR 50. 06/15 23:46 Order name: CBC with Diff; Complete Time: 00:37 cp 06/16 00:37 Interpretation: Reviewed. 06/15 23:46 Order name: D-Dimer; Complete Time: 00:37 06/15 23:46 Order name: LFT's; Complete Time: 01:08 06/16 01:10 Interpretation: Normal except: AST 14; ALK 163. 06/15 23:46 Order name: Magnesium; Complete Time: 01:08 06/15 23:46 Order name: NT PRO-BNP; Complete Time: 01:08 06/15 23:46 Order name: PT-INR; Complete Time: 00:37 06/16 00:37 Interpretation: PT 13.1; Reviewed. 06/15 23:46 Order name: Troponin HS; Complete Time: 01:08 06/16 01:12 Interpretation: Reviewed. 06/15 23:46 Order name: Strep 06/16 00:52 Order name: Throat Culture EDMT 06/16 08:22 Order name: Potassium EDMT 06/16 08:22 Order name: Troponin High Sensitivity EDMT 06/16 08:22 Order name: Lipid Profile EDMT 06/16 08:22 Order name: T4 Free EDMT 06/16 08:22 Order name: Magnesium EDMT 06/16 08:22 Order name: Thyroid Stimulating Hormone EDMT 06/15 23:46 Order name: XRAY Chest (1 view) 06/15 23:52 Order name: CT Chest For PE Angio 06/15 23:52 Order name: US Extremity Venous W Compression Ihsan 06/15 23:46 Order name: EKG; Complete Time: 23:46 06/15 23:46 Order name: Cardiac monitoring; Complete Time: 00:33 06/15 23:46 Order name: EKG - Nurse/Tech; Complete Time: 00:33 06/15 23:46 Order name: IV Saline Lock; Complete Time: 00:33 06/15 23:46 Order name: Labs collected and sent; Complete Time: 00:34 06/15 23:46 Order name: O2 Per Protocol; Complete Time: 00:34 06/15 23:46 Order name: O2 Sat Monitoring; Complete Time: 00:34 EC:35 Rate is 60 beats/min. Rhythm is regular. [place] interval is normal. QRS interval is normal. cp QT interval is prolonged at 460 msec. T waves are Inverted in lead aVR. Interpreted by me. Reviewed by me. Administered Medications: 00:33 Drug: Ipratropium Inhalation Aerosol 0.5 mg Inhalation once Route: Inhalation; [facility] 02:03 Follow up: Response: No adverse reaction jw7 00:33 Drug: Albuterol Inhalation 2.5 mg Inhalation once Route: Inhalation; jw7 02:03 Follow up: Response: No adverse reaction jw7 00:34 Drug: Aspirin PO Chewable Tablet 324 mg PO once; 81 mg tablets x 4 Route: PO; jw7 02:03 Follow up: Response: No adverse reaction jw7 00:49 Drug: Ketorolac IVP 15 mg IVP once Route: IVP; Site: right antecubital; jw7 02:03 Follow up: Response: No adverse reaction jw7 00:49 Drug: Ativan IVP 0.5 mg IVP once Route: IVP; Site: right antecubital; jw7 02:03 Follow up: Response: No adverse reaction jw7 02:02 Drug: Potassium Chloride IV 20 mEq IV at calculated rate once; administer over 1-2 jw7 hours Route: IV; Rate: calculated rate; Site: right antecubital; 05:04 Follow up: Response: No adverse reaction; IV Status: Completed infusion; IV Intake: jw7 100ml 02:03 Drug: Potassium PO Effervescent Tablet 50 mEq PO once; dissolve in 4 ounces of water or jw7 juice Route: PO; 03:54 Follow up: Response: No adverse reaction jw7 02:03 Drug: MethylPrednisoLONE IVP 80 mg IVP once Route: IVP; Site: right antecubital; jw7 03:54 Follow up: Response: No adverse reaction jw7 03:15 Drug: Levalbuterol Inhalation 1.25 mg Inhalation once Route: Inhalation; jw7 05:04 Follow up: Response: No adverse reaction jw7 Disposition Summary: 06/16/23 03:39 Hospitalization Ordered Notes: Hospitalization Status: Observation rn Provider: Agustín Dior rn Condition: Stable rn Problem: new rn Symptoms: are unchanged rn Bed/Room Type: Standard rn Location: Telemetry/MedSurg (observation)(06/16/23 11:51) ja Room Assignment: 407(06/16/23 11:51) [facility] Diagnosis - Chest pain, unspecified rn - Dyspnea, unspecified rn Forms: - Medication Reconciliation Form rn - SBAR form rn - Leadership Thank You Letter rn Addendum: 06/20/2023 09:28 Co-signature as Attending Physician, Malik Dior MD I reviewed the patient's care r n provided by the Advanced Practice Provider and agree with the diagnosis and treatment plan. Signatures: Dispatcher [employer] Malik Woods MD MD rn Page, Corey, PA PA cp Garcia, Cindy, RN RN cg Bolivar Dave RN RN ja1 Cathleen Livingston RN RN jw7 Sugar Bradley RN RN pf1 Corrections: (The following items were deleted from the chart) 06/16 02:42 06/15 23:50 Onset: The symptoms/episode began/occurred 2 week(s) ago, dinorah 06/16 04:59 03:39 Telemetry/MedSurg (observation) rn 04:59 03:39 rn cg 11:51 04:59 [facility] ER HOLD cg ja1 11:51 04:59 ERHOLD- ja1
--- NOTE | 2023-06-16 04:37 | P.HP ---
Certification for Inpatient Patient admitted to: Observation With expected LOS: <2 Midnights Patient will require the following post-hospital care: None Practitioner: I am a practitioner with admitting privileges, knowledge of patient current condition, hospital course, and medical plan of care. 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 She does take hydrochlorothiazide at home reports that swelling her lower extremities has been getting worse over the course of the last month. She also reports dyspnea on exertion, chest heaviness that she has when going up stairs or walking around. She denies ever having a stress test or heart catheterization her EKG is without STEMI criteria her initial high-sensitivity troponin is negative at 9.9 potassium is 2.7 creatinine 1.29 GFR 50 glucose 113 CBC unremarkable DVT study lower extremities is negative, CT PE protocol negative for any acute findings. Potassium was replaced in the emergency department, ED provider wishes to admit for ACS rule out. - Past Medical/Surgical History Diabetic: No -: PE/DVT on chronic anticoagulation -: Hypertension -: Hyperlipidemia -: BPD/anxiety -: Hysterectomy -: Multiple surgeries right lower extremity -: Left knee surgery Psychosocial/ Personal History: Patient disabled, lives at home with family - Family History Father -: Heart disease Mother -: Heart disease Brother -: Heart disease - Social History Smoking Status: Never smoker Alcohol use: No CD- Drugs: No Caffeine use: Yes Place of Residence: Home <Abbe Lux - Last Filed: 06/16/23 04:35> Date of Service: 06/16/23 <Agustín Dior - Last Filed: 06/16/23 17:14> Allergies No Known Allergies Allergy (Unverified 02/07/23 21:33) Home Medications: Apixaban [Eliquis] 5 mg PO BID 02/07/23 Ascorbic Acid [Vitamin C] 1,000 mg PO DAILY 05/09/23 Atorvastatin Calcium 10 mg PO BEDTIME 02/07/23 Buspirone HCl [Buspar] 10 mg PO TID 02/07/23 Metoprolol Tartrate [Lopressor] 100 mg PO BID 02/07/23 Pantoprazole [Protonix Tab*] 40 mg PO DAILY 02/07/23 Ziprasidone [Geodon*] 20 mg PO BID 02/07/23 Review of Systems 10-point ROS is otherwise unremarkable Respiratory: Shortness of Breath, SOB with Excertion Cardiovascular: Chest Pain, Edema <Abbe Lux - Last Filed: 06/16/23 04:35> Physical Examination - Physical Exam General: Alert, In no apparent distress, Oriented x3, Obese HEENT: Atraumatic, PERRLA, Mucous membr. moist/pink, EOMI, Sclerae nonicteric Neck: Supple, 2+ carotid pulse no bruit, No LAD, Without JVD or thyroid abnormality Respiratory: Clear to auscultation bilaterally, Normal air movement Cardiovascular: Regular rate/rhythm, Normal S1 S2, Edema Capillary refill: <2 Seconds Gastrointestinal: Normal bowel sounds, No tenderness Musculoskeletal: No tenderness Integumentary: No rashes Neurological: Normal gait, Normal speech, Normal strength at 5/5 x4 extr, Normal tone, Normal affect Lymphatics: No axilla or inguinal lymphadenopathy - Studies Laboratory Data (last 24 hrs) 06/16/23 06/16/23 06/16/23 00:17 00:17 00:17 WBC 9.90 Hgb 13.3 Hct 39.0 Plt Count 215 PT 13.1 H INR 1.19 Sodium 140 Potassium 2.7 L BUN 14 Creatinine 1.29 H Glucose 113 H Magnesium 1.8 Total Bilirubin 0.3 AST 14 L ALT 18 Alkaline Phosphatase 163 H Microbiology Data (last 24 hrs): 06/16/23 00:31 Throat Group A Streptococcus Rapid Screen - Final <Abbe Lux - Last Filed: 06/16/23 04:35> - Studies Laboratory Data (last 24 hrs) 06/16/23 06/16/23 06/16/23 00:17 00:17 00:17 WBC 9.90 Hgb 13.3 Hct 39.0 Plt Count 215 PT 13.1 H INR 1.19 Sodium 140 Potassium 2.7 L BUN 14 Creatinine 1.29 H Glucose 113 H Magnesium 1.8 Total Bilirubin 0.3 AST 14 L ALT 18 Alkaline Phosphatase 163 H Microbiology Data (last 24 hrs): 06/16/23 00:31 Throat Group A Streptococcus Rapid Screen - Final <Agustín Dior - Last Filed: 06/16/23 17:14> Assessment and Plan - Plan Assessment: Chest pain, dyspnea on exertion, pedal edema History of DVT/PE on chronic evaluation Hypertension Hyperlipidemia Hypokalemia Plan: Chest pain, dyspnea on exertion, pedal edema Trend troponin, monitor on telemetry, cardiology consult, echocardiogram ordered. We will gently diurese with IV Lasix given pitting edema of the lower extremities. BNP within normal limits, CTA of the chest did not demonstrate any findings for pulmonary edema. Continue aspirin, statin, beta-pita. History of DVT/PE on chronic evaluation Continue Eliquis. No DVT or PE currently. Hypertension Continue metoprolol, other home medications once verified. Hyperlipidemia Continue statin. Hypokalemia Replaced in ED, protocol in place. Will obtain magnesium level, repeat potassium early this morning. DVT PPX: Continue Eliquis Code status: Full Discharge Plan: Home Plan to discharge in: 24 Hours - Advance Directives Does patient have a Living Will: No Does patient have a Durable POA for Healthcare: No - Code Status/Comfort Care Code Status Assessed: Yes (Full code) Critical Care: No Time Spent Managing Pts Care (In Minutes): 55 <Abbe Lux - Last Filed: 06/16/23 04:35> - Plan Patient seen and examined on rounds this afternoon Continues with some heaviness in her chest Feels better regarding swelling - doesn't feel like she is "drowning" like before edema slightly improved, but persists trop negative x2 Cardiology consulted patient with significant family history also reports 5-6 DVTs while on anticoagulation - occur toño-operatively when patient is transitioned from eliquis to lovenox - denies any missed doses during those times, and yet she develops DVTs symptoms could be explained by PE that lead to stress induced cardiomyopathy, and PE treated by her eliquis, but would have expected improvement given cT negative echo ordered <Agustín Dior - Last Filed: 06/16/23 17:14>
[2023-06-16] MEDS ORDERED: ONDANSETRON 4 MG/2 ML VIAL IV PRN (06:04)
[2023-06-16] MEDS: METOPROLOL TAR 25 MG TAB PO SCH ×2 (06:04→17:02)
[2023-06-16 06:25] VITALS: BMI 37.3
[2023-06-16] MEDS ORDERED: METOPROLOL TAR 25 MG TAB ONE (06:42)
[2023-06-16] MEDS: FUROSEMIDE 20 MG/ 2ML VIAL IV SCH ×2 (07:44→17:02)
[2023-06-16 08:22] LABS: Magnesium 1.8 mg/dL (1.6-2.4); Potassium 2.8 mEq/L (3.5-5.1); Thyroid Stimulating Hormone 1.9 uIU/mL (0.358-3.740); Troponin High Sensitivity 9.1 pg/mL (<58.9)
[2023-06-16] MEDS ORDERED: APIXABAN 5 MG TABLET ONE (08:39)
[2023-06-16] MEDS ORDERED: ASPIRIN EC 81 MG TAB PO ONE (08:39)
[2023-06-16] MEDS ORDERED: ASPIRIN EC 81 MG TAB PO SCH (09:00)
[2023-06-16] MEDS ORDERED: APIXABAN 5 MG TABLET PO SCH (09:00)
[2023-06-16 12:59] VITALS: O2SAT 97
[2023-06-16] MEDS: KCL 20 MEQ/100 mL IVPB 20 MEQ/100 ML BAG IV SCH ×2 (13:23→16:00)
[2023-06-16] MEDS ORDERED: NA CHLORIDE 0.9% 1,000 ML ONE (13:27)
--- NOTE | 2023-06-16 16:32 | EKG ---
Test Date: 2023-06-16 Test Time: 00:28:28 Negotiator Sales: RUEL MEASUREMENT RESULTS: Intervals: Rate: 60 MS: 150 QRSD: 96 QT: 460 QTc: 460 [place]: P: 39 MS: 150 QRS: 2 T: 0 INTERPRETIVE STATEMENTS: Normal sinus rhythm Prolonged QT Abnormal ECG Compared to ECG 02/07/2023 17:44:18 Prolonged QT interval now present Electronically Signed On 06-16-23 16:31:18 CDT by Niko Miranda
[2023-06-16] MEDS ORDERED: POTASSIUM CL SA 10 MEQ TAB PO ONE (16:45)
[2023-06-16 17:03] VITALS: BP 117/66
[2023-06-16 17:37] VITALS: TEMP 97.5
--- NOTE | 2023-06-16 18:29 | RAD REPORT ---
EXAM DESCRIPTION: RAD - Chest Single View - 06/16/2023 1:10 am CLINICAL HISTORY: 53 years, Female, SOB COMPARISON: None. FINDINGS: Single view of the chest was obtained portable. No prior films are available for compariso n. External EKG leads within the [id number] limits diagnosis. The cardiomediastinal silhouette dem onstrate to be unremarkable. The heart is not enlarged. The thoracic aorta is unremarkable. The pulmo nary vasculature is normal distribution. Costophrenic angles are sharp. No areas of consolidation o r masses are seen. The rest of the soft tissue and bony structures demonstrate to be unremarkable. IMPRESSION: No acute cardiopulmonary disease is seen. Electronically signed by: Curtis Barrios MD 06/16/2023 1:44 AM CDT Due to temporary technical issues with the PACS/Fluency reporting system, reports are being signed by the in house radiologists without review as a courtesy to insure prompt reporting. The interpreting radiologist is fully responsible for the content of the report.
--- NOTE | 2023-06-16 18:35 | RAD REPORT ---
EXAM DESCRIPTION: US - Extrem Venous W Compress Ihsan - 06/16/2023 12:57 am CLINICAL HISTORY: SWELLING COMPARISON: None. TECHNIQUE: Grayscale, color Doppler, and spectral Doppler imaging of the bilateral lower extremity v enous system. FINDINGS: Normal compressibility and flow identified in the bilateral common femoral, superficial fe moral, popliteal, and visualized calf veins. No echogenic thrombus identified. Subcutaneous edema. Re spiratory phasicity in the common femoral veins. IMPRESSION: No evidence of lower extremity DVT. Electronically signed by: Matthias Dominguez 06/16/2023 1:13 AM CDT Due to temporary technical issues with the PACS/Fluency reporting system, reports are being signed by the in house radiologists without review as a courtesy to insure prompt reporting. The interpreting radiologist is fully responsible for the content of the report.
--- NOTE | 2023-06-16 18:40 | P.DS ---
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 She does take hydrochlorothiazide at home reports that swelling her lower extremities has been getting worse over the course of the last month. She also reports dyspnea on exertion, chest heaviness that she has when going up stairs or walking around. She denies ever having a stress test or heart catheterization her EKG is without STEMI criteria her initial high-sensitivity troponin is negative at 9.9 potassium is 2.7 creatinine 1.29 GFR 50 glucose 113 CBC unremarkable DVT study lower extremities is negative, CT PE protocol negative for any acute findings. Potassium was replaced in the emergency department, ED provider wishes to admit for ACS rule out. Hospital Course: Patient was admitted for ACS rule out, troponins trended negative, patient was symptom-free during her hospital stay. She was evaluated by cardiology who recommended observation overnight followed by discharge tomorrow and subsequent outpatient stress test. Patient feeling well at this time concerned with the financial applications of staying in the night in the hospital if there were no interventions to be taking place and wishes to leave the hospital. Her vital signs are stable, she has been chest pain-free at this time. Her potassium was replaced this afternoon. She is given strict return precautions and will be given the follow-up information for Dr. Diaz cardiology clinic. She is to continue all of her other home medications. Vital Signs/Physical Exam: Temp Pulse Resp BP Pulse Ox 97.5 F 73 20 117/66 97 06/16/23 16:00 06/16/23 17:02 06/16/23 16:00 06/16/23 17:02 06/16/23 16:00 General: Alert, In no apparent distress HEENT: Atraumatic, PERRLA, EOMI Neck: Supple, JVD not distended Respiratory: Clear to auscultation bilaterally, Normal air movement Cardiovascular: Regular rate/rhythm, Normal S1 S2 Gastrointestinal: Normal bowel sounds, No tenderness Musculoskeletal: No tenderness Integumentary: No rashes Neurological: Normal speech, Normal tone, Normal affect Lymphatics: No axilla or inguinal lymphadenopathy Laboratory Data at Discharge: WBC 9.90 thou/uL (4.3-10.9) 06/16/23 00:17 Hgb 13.3 g/dL (12.0-15.0) 06/16/23 00:17 Hct 39.0 % (36.0-45.0) 06/16/23 00:17 Plt Count 215 thou/uL (152-406) 06/16/23 00:17 PT 13.1 SECONDS (9.5-12.5) H 06/16/23 00:17 INR 1.19 06/16/23 00:17 Sodium 140 mEq/L (136-145) 06/16/23 00:17 Potassium 2.8 mEq/L (3.5-5.1) L 06/16/23 07:37 BUN 14 mg/dL (7-18) 06/16/23 00:17 Creatinine 1.29 mg/dL (0.55-1.02) H 06/16/23 00:17 Glucose 113 mg/dL (74-106) H 06/16/23 00:17 Magnesium 1.8 mg/dL (1.6-2.4) 06/16/23 07:37 Total Bilirubin 0.3 mg/dL (0.2-1.0) 06/16/23 00:17 AST 14 U/L (15-37) L 06/16/23 00:17 ALT 18 U/L (13-56) 06/16/23 00:17 Alkaline Phosphatase 163 U/L (45-117) H 06/16/23 00:17 Triglycerides 49 mg/dL (<150) 06/16/23 07:37 Cholesterol 130 mg/dL (<200) 06/16/23 07:37 HDL Cholesterol 54 mg/dL (40-60) 06/16/23 07:37 Cholesterol/HDL Ratio 2.41 06/16/23 07:37 Home Medications: Apixaban [Eliquis] 5 mg PO BID 02/07/23 Ascorbic Acid [Vitamin C] 1,000 mg PO DAILY 02/07/23 Atorvastatin Calcium 10 mg PO BEDTIME 02/07/23 Buspirone HCl [Buspar] 10 mg PO TID 02/07/23 Metoprolol Tartrate [Lopressor] 100 mg PO BID 02/07/23 Pantoprazole [Protonix Tab*] 40 mg PO DAILY 02/07/23 Ziprasidone [Geodon*] 20 mg PO BID 02/07/23 Diet: AHA Activity: Ad juan m Time spent managing pt's care (in minutes): 15
--- NOTE | 2023-06-16 19:07 | RAD REPORT ---
EXAM DESCRIPTION: CT - Chest For Pe Angio - 06/16/2023 2:13 am CLINICAL HISTORY: 53 years, Female, SOB COMPARISON: 02/07/2023 TECHNIQUE: Multiple transaxial tomograms of the chest were obtained from the lung apices through the lung bases utilizing 2 mm slice thickness at 2 mm interval reconstruction after the administration o f large bolus of IV contrast for complete opacification of the pulmonary arteries. Subsequent 3-D maximum intensity projection images were generated in the coronal and sagittal plane f or review. This exam was performed according to our departmental dose-optimization protocol, which includes auto mated exposure control, adjustment of the mA and/or kV according to patient size and/or use of iterat dandre reconstruction technique. FINDINGS: The lungs parenchyma demonstrate to be clear. No evidence for pneumothorax. No masses, nod ules and/or consolidations are identified. The trachea mainstem bronchus demonstrate to be normal. There is no significant pericardial or pleura l effusions. The thoracic aorta demonstrate very minimal intimal calcification. The heart is normal in size. There are no coronary artery calcifications. No evidence for right ventricular strain. There is no significant mediastinal and/or hilar lymphadenopathy. The axillary regions demonstrate to be clear. Pulmonary arteries demonstrate to be normal, no intraluminal defect are seen that would suggest pulmo nary embolus. The bone windows demonstrate no significant skeletal lesions. The visualized portions of the upper abdomen demonstrate to be unremarkable. IMPRESSION: No CT evidence for pulmonary embolus. Minimal intimal calcification of the thoracic aorta. Otherwise unremarkable CT scan of the chest with contrast. Electronically signed by: Curtis Barrios MD 06/16/2023 1:47 AM CDT Due to temporary technical issues with the PACS/Fluency reporting system, reports are being signed by the in house radiologists without review as a courtesy to insure prompt reporting. The interpreting radiologist is fully responsible for the content of the report.
[2023-06-16] MEDS ORDERED: ATORVASTATIN 40 MG TAB PO SCH (21:00)
--- NOTE | 2023-06-19 07:44 | ECHO ---
HEIGHT: 5 ft 3 in WEIGHT: 211 lb 4.8 oz DATE OF STUDY: 06/16/[address]: Abbe Lux NP 2-DIMENSIONAL: YES M.MODE: YES DOPPLER: YES COLOR FLOW: YES TDS: PORTABLE: YES DEFINITY: BUBBLE STUDY: DIAGNOSIS: CHEST PAIN/ DYSPNEA ON EXERSION, EDEMA CARDIAC HISTORY: CATHERIZATION: NO SURGERY: NO PROSTHETIC VALVE: NO PACEMAKER: NO MEASUREMENTS (cm) DIASTOLIC (NORMALS) SYSTOLIC (NORMALS) IVSd 0.9 (0.6-1.2) LA Diam 3.7 (1.9-4.0) LVEF 73% LVIDd 5.2 (3.5-5.7) LVIDs 3.0 (2.0-3.5) %FS 42% LVPWd 1.0 (0.6-1.2) Ao Diam 2.9 (2.0-3.7) 2 DIMENSIONAL ASSESSMENT: RIGHT ATRIUM: NORMAL LEFT ATRIUM: NORMAL RIGHT VENTRICLE: NORMAL LEFT VENTRICLE: NORMAL TRICUSPID VALVE: NORMAL MITRAL VALVE: NORMAL PULMONIC VALVE: NORMAL AORTIC VALVE: NORMAL PERICARDIAL EFFUSION: NONE AORTIC ROOT: NORMAL LEFT VENTRICULAR WALL MOTION: NORMAL DOPPLER/COLOR FLOW: NORMAL COMMENTS: 1. NORMAL LEFT VENTRICULAR EJECTION FRACTION 60-65% 2. NORMAL WALL MOTION 3. GRADE I DIASTOLIC DYSFUNCTION TECHNOLOGIST: NNEKA LYNCH
== END 2023-06-16 19:11 | disposition home or self-care (01) ==
LOC: ER 22:53 → ERHOLD 06-16 04:28 → 4TH 06-16 12:04
PROVIDERS: ADMIT Hospitalist; ATTEND Hospitalist
DX: R07.9 Chest pain, unspecified (principal); I10 Essential (primary) hypertension; E78.5 Hyperlipidemia, unspecified; E87.6 Hypokalemia; R06.00 Dyspnea, unspecified; R60.9 Edema, unspecified; Z82.49 Family history of ischemic heart disease and other diseases of the circulatory system; Z86.718 Personal history of other venous thrombosis and embolism; Z79.01 Long term (current) use of anticoagulants
CPT/HCPCS: 36415; 71045; 71275; 80048; 80061; 80076; 83735; 83880; 84132; 84439; 84443; 84484; 85025; 85379; 85610; 87070; 87081; 93005; 93306; 93970; 96365; 96366; 96375; 99285; G0378; J1940; J2920; J3480; J7030; J7050; J7614; Q9967